=== PATIENT | male | born 1935 ===

== ENCOUNTER 2025-01-31 13:38 | Outpatient (REF) | payer SELFPAY ==
[2025-01-31 14:21] LABS: Alanine Aminotransferase 13 U/L (0-40); Albumin Level 3.4 g/dL (3.5-5.0); Alkaline Phosphatase 73 U/L (39-117); Anion Gap 11 (12-20); Aspartate Amino Transferase 32 U/L (5-37); Blood Urea Nitrogen 15 mg/dL (9-16); Calcium 8.6 mg/dL (8.4-10.2); Carbon Dioxide 28 mmol/L (22-29); Chloride 105 mmol/L (96-108); Estimated Glomerular Filt Rate > 60; Potassium 4.2 mmol/L (3.3-5.1); Sodium 140 mmol/L (135-145); Total Protein 6.3 g/dL (6.5-8.0)
--- OUTSIDE RECORDS SUMMARY | 2025-01-31 16:46 | XMS_ITS | Clinical Summary ---
[facility] Address [address] [place] [address] Care Team Providers Care Rug Scratcher Name Role Phone Cortney Cameron MD Primary Care Provider [phone] Allergies No known active allergies Medications aspirin 81 mg EC tablet Take 1 tablet (81 mg total) by mouth 1 (one) time each day. Active atorvastatin (LIPITOR) 20 mg tablet Take 1 tablet (20 mg total) by mouth 1 (one) time each day. Active lisinopriL (PRINIVIL,ZESTR IL) 5 mg tablet Take 1 tablet (5 mg total) by mouth 1 (one) time each day. 09/23/2018 Active metoprolol tartrate (LOPRESSOR) 25 mg tablet Take 1 tablet (25 mg total) by mouth 2 (two) times a day. Active sildenafiL (VIAGRA) 50 mg tablet take 1 tablet by mouth 30 MINUTES BEFORE SEXUAL ACTIVITY 02/24/2017 Active multivit-min/fo lic acid/lutein (CENTRUM SILVER ORAL) Take by mouth. Active Active Problems Problem Noted Date Diagnosed Date Anxiety 04/27/2024 Hypertension 04/27/2024 Iron deficiency anemia 04/27/2024 Diverticulosis 10/25/2019 Overview (04/27/2024): Incidental finding on outside CT Iliac artery stenosis, bilateral (CMS/HCC V24) 1 Overview (04/27/2024): 06/2018 CT angio: right-moderate, left-severe Calculus of gallbladder with out cholecystitis without obstruction 05/13/2017 Obstructive sleep apnea 07/18/2015 Overview (04/27/2024): Polysomnogram 01/23/16 [facility] Home Sleep Apnea Test: Date 06/28/2020; Wt 200#; BMI 31; KRISHAN (AHI) 12, AI 9; HI 3; Unclassified apneas 5; Obstructive apneas 38; Central apneas 0; Mixed apneas 0; hypopneas 13; average oxygen saturation 89% (lowest 83% with saturations <88% for 5% or more of study) - Obstructive Sleep Apnea - mild; mostly obstructive apneas with hypopneas; with sleep related hypoventilation by [address] Bacon ordered testing Claudication ([facility] V24) 12/26/2013 CAD (coronary artery disease) 07/26/2013 Overview (04/27/2024): S/p CABG with AVR for aortic stenosis PVD (peripheral vascular disease) ([facility] V24) 07/26/2013 Overview (04/27/2024): History bilateral external iliac stents -11/30/2013 GERD (gastroesophageal reflux disease) 3 Immunizations Immunization Administration Dates Next Due Influenza trivalent, 0.5mL, preservative free (Fluarix; FluLaval; Fluzone) ages 6mo and older (Afluria) 3 years and older 12/22/2019 Pneumococcal polysaccharide 23 valent (Pneumovax 23) 2yo and older 01/01/2015 Tdap Tetanus diptheria acell ular pertussis (Boostrix; Adacel) 7yo and older 01/01/2015 Surgical History Surgery Date Site/Laterality Comments OTHER SURGICAL HISTORY PROCEDURE: [place] RPLCMT AORTIC VALVE ANNULUS ENLGMENT NONC SINUS; COMMENT: Dr. Garland Murrell 2011 single vessel bypass Medical History Medical History Date Comments Hypertension DX:Hypertension Iron deficiency anemia DX:Iron d eficiency anemia Anxiety DX:Anxiety GERD (gastroesophageal reflux disease) 3 DX:GERD (gastroesophageal reflux disease) Claudication ([facility] V24) 12/26/2013 DX:Cl audication ([facility]) Calculus of gallbladder with out cholecystitis without obstruction 05/13/2017 DX:Calculus of gallb ladder without cholecystitis without obstruction History of coronary artery s tent placement 12/13/2018 DX:History of coronary arter y stent placement CAD (coronary artery disease) 07/26/2013 DX :CAD (coronary artery disease); COMMENT: S/p CABG with AVR for aortic stenosis History of aortic stenosis 07/18/2015 DX:Hi story of aortic stenosis Obstructive sleep apnea 07/18/2015 DX:Obstr uctive sleep apnea; COMMENT: Polysomnogram 01/23/16 PVD (peripheral vascular dis ease) ([facility] V24) 07/26/2013 DX:PVD (peripheral vascular disease) ([facility]); COMMENT: History bilateral external iliac stents -11/30/2013 S/P Avr 07/26/2013 DX:S/P AVR; 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 Iliac artery stenosis, bilat eral ([facility] V24) 01/19/2019 DX:Iliac artery stenosis, bi lateral ([facility]); COMMENT: 06/2018 CT angio: right-moderate, left-severe Diverticulosis 10/25/2019 DX:Diverticulosi s; COMMENT: Incidental finding on outside CT Family History Medical History Relation Name Comments Other cancer Father 1 Relation Name Status Comments Father Mother Social History Tobacco Use Types Packs/Day Years Used Date Smoking Tobacco: Every Day Cigarettes Smokeless Tobacco: Never Alcohol Use Standard Drinks/Week Comments Yes 0 (1 standard drink = 0.6 oz pur e alcohol) Sex and Gender Information Value Date Recorded Sex Assigned at Not on file Legal Sex Male 5:24 AM EST Gender Identity Not on file Sexual Orientation Not on file Obstetrics History Last Filed Vital Signs Vital Sign Reading Time Taken Comments Blood Pressure 139/63 12/19/2022 10:54 AM EDT L Arm Pulse 65 12/19/2022 10:54 AM EDT Temperature - - Respiratory Rate - - Oxygen Saturation - - Inhaled Oxygen Concentration - - Weight 71.7 kg (158 lb) 12/19/2022 10:54 AM EDT Height 170.2 cm (5' 7 ) 12/19/2022 10:54 AM EDT Body Mass Index 24.75 12/19/2022 10:54 AM EDT Plan of Treatment Health Maintenance Due Date Last Done Comments Zoster Vaccines (1 of 2) 01/07/1986 RSV Immunization Adult Patie nts (1 - 1-dose 75+ series) 01/07/2011 Pneumococcal Vaccine: 50+ Ye ars (2 of 2 - PCV) 01/02/2016 01/01/2015 Cholesterol Screening (Lipid Panel) 03/02/2022 08/02/2015 Falls Risk Assessment 03/02/2022 Social Influencers of Health Screening 03/02/2022 Hypertension/CHF/CAD Annual BMP Blood Test 03/15/2022 05/14/2017 Depression Screening 03/30/2024 COVID-19 Vaccine (1 - 2023-2 5 season) 2024 Influenza Vaccine (#1) 2024 12/22/2019 DTaP,Tdap,and Td Vaccines (2 - Td or Tdap) 01/01/2025 01/01/2015 HIB Vaccines Aged Out No longer eligi ble based on patient's age to complete this topic HPV Vaccines Aged Out No longer eligi ble based on patient's age to complete this topic Hepatitis A Vaccines Aged Out No long er eligible based on patient's age to complete this topic Hepatitis B Vaccines Aged Out No long er eligible based on patient's age to complete this topic IPV Vaccines Aged Out No longer eligi ble based on patient's age to complete this topic MMR Vaccines Aged Out No longer eligi ble based on patient's age to complete this topic Meningococcal ACWY Vaccine Aged Out N o longer eligible based on patient's age to complete this topic Meningococcal B Vaccine Aged Out No l onger eligible based on patient's age to complete this topic RSV Immunization Patients Un kaushik 20 months Aged Out No longer eligible b ased on patient's age to complete this topic Varicella Vaccines Aged Out No longer eligible based on patient's age to complete this topic Procedures Procedure Name Priority Date/Time Associated Diagnosis Comments ANNUAL BMP BLOOD TEST Routine 05/14/2017 LIPID PANEL Routine 08/02/2015 from Last 3 Months or Most Recently Relevant to Health Maintenance Results * Annual BMP Blood Test (05/14/2017) Annual BMP Blood Test abstracted us Historical Provider HEALTH MAINTENANCE Final Result * (ABNORMAL) Lipid panel (08/02/2015) LDL/HDL Ratio 3 0 - 4 Triglycerides 159(A) 0 - 150 mg/dL Cholesterol 118 0 - 200 mg/dL HDL 42 >=40 mg/dL LDL Cholesterol 45 0 - 100 mg/dL Blood Venous blood specimen / Unknown us Historical Provider LAB BLOOD ORDERABLES Joan l Result from Last 3 Months or Most Recently Relevant to Health Maintenance Care Teams Rug Scratcher Relationship Specialty Start Date End Date Cortney Cameron MD [address] [place] [id number] PCP - General Internal Medicine 12/06/20
== END 2025-01-31 13:39 | disposition home or self-care (01) ==
LOC: HO.HVNA 13:38
PROVIDERS: Visit Provider Internal Medicine
DX: I97.630 Postprocedural hematoma of a circulatory system organ or structure following a cardiac catheterization (principal); R78.81 Bacteremia; J18.9 Pneumonia, unspecified organism
CPT/HCPCS: 36415; 80053

== ENCOUNTER 2025-02-07 13:30 | Outpatient (REF) | payer SELFPAY ==
[2025-02-07 13:34] LABS: MANUAL DIFF FLAG NO
[2025-02-07 13:49] LABS: Hematocrit 35.1 % (42.0-52.0); Hemoglobin 11.3 g/dl (14.0-18.0); Imm Gran Abs Auto 0.02 X10*3/uL (0.00-0.03); Imm Gran Pct Auto 0.3 % (0.0-0.4); Lymphocytes Absolute Auto 1.7 X10*3/uL (1.2-4.9); Mean Corpuscular HGB Conc 32.2 g/dl (31.0-36.0); Mean Corpuscular Hemoglobin 31.2 pg (27.0-33.0); Mean Corpuscular Volume 97.0 fL (80.0-98.0); NRBC Abs Auto 0.000 X10*3/uL (0.0-0.012); NRBC Pct Auto 0.0 /100WBC (0.0-0.2); Platelet Count 228 X10*3/uL (160-400); Red Blood Count 3.62 X10*6/uL (4.60-5.80); White Blood Count 6.2 X10*3/uL (4.8-10.8)
[2025-02-07 14:23] LABS: Alanine Aminotransferase 11 U/L (0-40); Albumin Level 3.5 g/dL (3.5-5.0); Alkaline Phosphatase 73 U/L (39-117); Anion Gap 10 (12-20); Aspartate Amino Transferase 34 U/L (5-37); Blood Urea Nitrogen 17 mg/dL (9-16); Calcium 8.9 mg/dL (8.4-10.2); Carbon Dioxide 29 mmol/L (22-29); Chloride 105 mmol/L (96-108); Estimated Glomerular Filt Rate > 60; Potassium 4.1 mmol/L (3.3-5.1); Sodium 140 mmol/L (135-145); Total Protein 6.8 g/dL (6.5-8.0)
== END 2025-02-07 13:31 | disposition home or self-care (01) ==
LOC: HO.HVNA 13:30
PROVIDERS: Visit Provider Internal Medicine
DX: I97.630 Postprocedural hematoma of a circulatory system organ or structure following a cardiac catheterization (principal); R78.81 Bacteremia; B26.2 Mumps encephalitis
CPT/HCPCS: 36415; 80053; 85025

== ENCOUNTER 2025-02-17 13:59 | Outpatient (REF) | payer SELFPAY ==
[2025-02-17 14:03] LABS: MANUAL DIFF FLAG NO
[2025-02-17 14:14] LABS: Hematocrit 35.7 % (42.0-52.0); Hemoglobin 11.6 g/dl (14.0-18.0); Imm Gran Abs Auto 0.01 X10*3/uL (0.00-0.03); Imm Gran Pct Auto 0.2 % (0.0-0.4); Lymphocytes Absolute Auto 1.3 X10*3/uL (1.2-4.9); Mean Corpuscular HGB Conc 32.5 g/dl (31.0-36.0); Mean Corpuscular Hemoglobin 31.4 pg (27.0-33.0); Mean Corpuscular Volume 96.5 fL (80.0-98.0); NRBC Abs Auto 0.000 X10*3/uL (0.0-0.012); NRBC Pct Auto 0.0 /100WBC (0.0-0.2); Platelet Count 190 X10*3/uL (160-400); Red Blood Count 3.70 X10*6/uL (4.60-5.80); White Blood Count 5.2 X10*3/uL (4.8-10.8)
--- OUTSIDE RECORDS SUMMARY | 2025-02-17 14:25 | XMS_ITS | Clinical Summary ---
[facility] Address [address] [place] [address] Care Team Providers Care Logistics Operations Director Name Role Phone Cortney Cameron MD Primary Care Provider [phone] Allergies No known active allergies Medications aspirin [...] sleep apnea 07/18/2015 Overview (04/27/2024): Polysomnogram 01/23/16 [facility] Home Sleep Apnea Test: Date [...] test. Dr Bacon ordered testing Claudication ([facility] V24) 12/26/2013 CAD (coronary artery disease) 07/26/2013 Overview (04/27/2024): S/p CABG with AVR for aortic stenosis PVD (peripheral vascular disease) ([facility] V24) 07/26/2013 Overview (04/27/2024): History bilateral [...] Date Site/Laterality Comments OTHER SURGICAL HISTORY PROCEDURE: [place] RPLCMT AORTIC VALVE ANNULUS ENLGMENT NONC SINUS; COMMENT: Dr. Garland Murrell 2011 single vessel bypass Medical History Medical History Date Comments Hypertension DX:Hypertension Iron deficiency anemia DX:Iron d eficiency anemia Anxiety DX:Anxiety GERD (gastroesophageal reflux disease) 3 DX:GERD (gastroesophageal reflux disease) Claudication ([facility] V24) 12/26/2013 DX:Cl audication ([facility]) Calculus of gallbladder with out cholecystitis [...] Polysomnogram 01/23/16 PVD (peripheral vascular dis ease) ([facility] [place]) 07/26/2013 DX:PVD (peripheral vascular disease) ([facility]); COMMENT: History bilateral external iliac stents -11/30/2013 S/P Avr 07/26/2013 DX:S/P AVR; 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 Iliac artery stenosis, bilat eral ([facility] V24) 01/19/2019 DX:Iliac artery stenosis, bi lateral ([facility]); COMMENT: 06/2018 CT angio: right-moderate, left-severe [...] Depression Screening 03/30/2024 COVID-19 Vaccine (1 - 2024-2 6 season) 2024 Influenza Vaccine (#1) 2024 12/22/2019 [...] Recently Relevant to Health Maintenance Care Teams Logistics Operations Director Relationship Specialty Start Date End Date Cortney Cameron MD [address] [place] [id number] PCP - General Internal Medicine 12/06/20
[2025-02-17 15:05] LABS: Alanine Aminotransferase 15 U/L (0-40); Albumin Level 3.4 g/dL (3.5-5.0); Alkaline Phosphatase 73 U/L (39-117); Anion Gap 12 (12-20); Aspartate Amino Transferase 33 U/L (5-37); Blood Urea Nitrogen 16 mg/dL (9-16); Calcium 8.8 mg/dL (8.4-10.2); Carbon Dioxide 28 mmol/L (22-29); Chloride 107 mmol/L (96-108); Estimated Glomerular Filt Rate > 60; Potassium 3.9 mmol/L (3.3-5.1); Sodium 143 mmol/L (135-145); Total Protein 6.6 g/dL (6.5-8.0)
== END 2025-02-17 14:00 | disposition home or self-care (01) ==
LOC: HO.HVNA 13:59
PROVIDERS: Visit Provider Internal Medicine Infectious Disease
DX: I97.630 Postprocedural hematoma of a circulatory system organ or structure following a cardiac catheterization (principal); R78.81 Bacteremia
CPT/HCPCS: 36415; 80053; 85025